=== PATIENT | female | born 1950 | race Two or more races ===

== ENCOUNTER 2016-07-31 20:01 | Observation (INO) | payer MEDICARE ==
[~2016-07-31] VITALS: Ht 154.9 cm; Wt 77.1 kg
[2016-07-31] MEDS ORDERED: SODIUM CHLORIDE 0.9% 1,000 ML IVB ONE (20:06)
[2016-07-31 20:42] LABS: Hematocrit 43.4 % (36.0-46.0); Hemoglobin 14.8 g/dL (12.2-16.2); Mean Corpuscular Hemoglobin 30.7 pg (28.0-32.0); Mean Corpuscular Volume 90.1 fL (80.0-100.0); Platelet Count (auto) 201 10^3/uL (140-450); Red Cell Distribution Width 13.6 % (11.6-16.0); White Blood Cell 5.6 10^3/uL (4.4-10.8)
[2016-07-31 20:56] LABS: Metamyelocytes % 0; Myelocytes % 0; Promyelocytes % 0; Reactive Lymphocytes 0
[2016-07-31 21:03] LABS: INR 0.94 (0.9-1.15); Partial Thromboplastin Time 24.3 sec (22.64-33.71); Prothrombin Time 10.1 sec (9.37-12.3)
[2016-07-31 21:15] LABS: B-Type Natriuretic Peptide 82.03 pg/mL (0-100); Magnesium 2.1 mg/dL (1.6-2.6)
[2016-07-31 21:16] LABS: Temperature: 22.9 C (20.0-25.0)
[2016-07-31 21:24] LABS: Salicylate 2.4 mg/dL (2.8-20.0)
[2016-07-31 21:26] LABS: Acetaminophen < 2.0 ug/mL (10-30)
[2016-07-31 21:49] LABS: Platelet Estimate Adequate; RBC Morphology Normal
[2016-07-31 22:31] LABS: Albumin 3.9 g/dL (3.4-5.0); BUN/Creatinine Ratio 7.4; Calcium 8.6 mg/dL (8.5-10.1); Potassium 3.3 mmol/L (3.5-5.1)
[2016-07-31 22:33] LABS: Bilirubin, Total 0.3 mg/dL (0.2-1.0); Total Protein 8.5 g/dL (6.4-8.2)
[2016-08-01] MEDS ORDERED: HYDROcodone-ACET 5/325MG TAB PO ONE (05:00)
[2016-08-01 07:45] VITALS: BP 168/82
== END 2016-08-01 09:38 | disposition home or self-care (01) | DRG 880 ==
LOC: EDBD 20:01 → ER 20:15 → OVERFLOW 23:39 → ER 08-01 09:38
PROVIDERS: ADMIT Family Medicine; ATTEND Family Medicine
DX: R45.851 Suicidal ideations (principal); F41.9 Anxiety disorder, unspecified; F10.120 Alcohol abuse with intoxication, uncomplicated; E11.9 Type 2 diabetes mellitus without complications; I10 Essential (primary) hypertension; F32.9 Major depressive disorder, single episode, unspecified; Z85.3 Personal history of malignant neoplasm of breast
CPT/HCPCS: 36415; 71010; 80053; 80307; 80320; 80329; 83735; 83880; 84484; 85007; 85027; 85610; 85730; 96360; 99285; G0378

== ENCOUNTER 2019-01-02 10:42 | Emergency (ER) | payer OTHER, MEDICAID ==
[~2019-01-02] VITALS: Ht 160 cm; Wt 77.1 kg
[2019-01-02 11:27] LABS: Basophils # (auto) 0.1 uL; Basophils % (auto) 1.8 % (0.0-2.0); Eosinophils # (auto) 0.2 uL; Eosinophils % (auto) 3.1 % (0.0-7.0); Hematocrit 42.1 % (36.0-46.0); Hemoglobin 14.6 g/dL (12.2-16.2); Lymphocytes # (auto) 1.7 uL; Lymphocytes % (auto) 32.7 % (10.0-50.0); Mean Corpuscular Hemoglobin 31.3 pg (28.0-32.0); Mean Corpuscular Hgb Conc. 34.7 g/dL (32.0-36.0); Mean Corpuscular Volume 90.3 fL (80.0-100.0); Monocytes # (auto) 0.4 uL; Monocytes % (auto) 8.1 % (0.0-12.0); Neutrophils # (auto) 2.8 uL; Neutrophils % (auto) 54.3 % (37.0-80.0); Nucleated Red Blood Cells % 0.1 %; Platelet Count (auto) 166 10^3/uL (140-450); Red Blood Cells 4.66 10^6/uL (4.0-5.20); Red Cell Distribution Width 13.2 % (11.8-14.3); White Blood Cell 5.2 10^3/uL (4.4-10.8)
[2019-01-02 11:42] LABS: Albumin 3.6 g/dL (3.4-5.0); Anion Gap 9 (5-15); Blood Urea Nitrogen 5 mg/dL (7-18); Calcium 8.8 mg/dL (8.5-10.1); Carbon Dioxide 24 mmol/L (21-32); Chloride 108 mmol/L (98-107); Glucose 164 mg/dL (74-106); Potassium 3.4 mmol/L (3.5-5.1); Sodium 141 mmol/L (136-145)
[2019-01-02 11:48] LABS: Alanine Aminotransferase 61 U/L (13-56); Alkaline Phosphatase 167 U/L (45-117); Aspartate Aminotransferase 163 U/L (15-37); BUN/Creatinine Ratio 7.4; Bilirubin, Total 0.4 mg/dL (0.2-1.0); GFR African American 110 mL/min; GFR Non-African American 91 mL/min; Total Protein 8.4 g/dL (6.4-8.2)
[2019-01-02 11:56] LABS: INR 0.93 (0.9-1.15); Partial Thromboplastin Time 24.8 sec (23.64-32.05)
[2019-01-02] MEDS ORDERED: SODIUM CHLORIDE 0.9% 1,000 ML IV ONE (12:05)
[2019-01-02] MEDS ORDERED: LABETALOL HCL 5 MG/ML ML 20ML VIAL IV ONE (12:15)
[2019-01-02] MEDS ORDERED: ASPirin 81 mg TAB PO ONE (12:15)
[2019-01-02 12:50] LABS: Urine Bacteria FEW /hpf (None Seen); Urine Blood Negative /uL (Negative); Urine Specific Gravity 1.012 (1.001-1.035); Urine WBC 62 /hpf (0 - 5)
[2019-01-02 14:05] VITALS: BP 172/73
[2019-01-02] MEDS ORDERED: cefTRIAXone 1GM/50ML D5W 50 ML IV ONE (14:15)
[2019-01-02] MEDS ORDERED: POTASSIUM EFFERVESENT TAB 25 MEQ PO ONE (14:15)
== END 2019-01-02 16:07 | disposition home or self-care (01) ==
LOC: ER 10:42
DX: I10 Essential (primary) hypertension (principal); N39.0 Urinary tract infection, site not specified; E11.65 Type 2 diabetes mellitus with hyperglycemia; E87.6 Hypokalemia; R74.8 Abnormal levels of other serum enzymes; M81.0 Age-related osteoporosis without current pathological fracture; Z85.3 Personal history of malignant neoplasm of breast
CPT/HCPCS: 36415; 71046; 80053; 81001; 83735; 84443; 84484; 85025; 85610; 85730; 93005; 94761; 96361; 96365; 96375; 99284; J0696; J7030